=== PATIENT | male | born 1970 | race Caucasian/White ===

== ENCOUNTER → 2019-04-20 | Outpatient (REF) | payer OTHER ==
[2019-04-20 12:34] LABS: HEMATOCRIT 48.1 % (42.0-52.0); MEAN CORPUSCULAR HEMOGLOBIN 29.3 pg (27.0-33.0); MEAN CORPUSCULAR HGB CONC 33.3 g/dl (32.0-36.5); MEAN CORPUSCULAR VOLUME 88.1 fl (80.0-96.0); PLATELET COUNT, AUTOMATED 244 10^3/uL (150-450); RED BLOOD COUNT 5.46 10^6/uL (4.30-6.10); WHITE BLOOD COUNT 5.8 10^3/uL (4.0-10.0)
[2019-04-20 12:41] LABS: ALT/SGPT 33 U/L (12-78); BILIRUBIN,TOTAL 0.8 MG/DL (0.2-1.0); BLOOD UREA NITROGEN 12 MG/DL (7-18); CALCIUM LEVEL 9.4 MG/DL (8.5-10.1); CARBON DIOXIDE LEVEL 30 MEQ/L (21-32); CHLORIDE LEVEL 104 MEQ/L (98-107); CHOLESTEROL LEVEL 264 MG/DL (<200); CREATININE FOR GFR 1.15 MG/DL (0.70-1.30); GLOMERULAR FILTRATION RATE > 60.0 (>60); GLUCOSE, FASTING 94 MG/DL (70-100); POTASSIUM SERUM 4.7 MEQ/L (3.5-5.1); SODIUM LEVEL 140 MEQ/L (136-145); TRIGLYCERIDES LEVEL 222 MG/DL (<150)
[2019-04-20 12:42] LABS: ALBUMIN 4.2 GM/DL (3.2-5.2); CHOLESTEROL RISK RATIO 4.714 (<5); HDL CHOLESTEROL 56 MG/DL (>40); LDL CHOLESTEROL 164 MG/DL (<100); NON-HDL-C 208 MG/DL; TOTAL PROTEIN 7.3 GM/DL (6.4-8.2)
== END ==
LOC: M LABDRAW1 07:46
PROVIDERS: ATTEND Family Medicine
DX: Z00.00 Encounter for general adult medical examination without abnormal findings (principal)

== ENCOUNTER → 2019-06-05 | Outpatient (CLI) | payer OTHER ==
--- NOTE | 2019-06-07 11:21 | SLEEPCENT ---
DATE OF PROCEDURE: 06/05/2019 ORDERED BY: RENA Chin Nocturnal polysomnography was performed for the titration of pressure therapy in this patient with a clinical history of obstructive sleep apnea syndrome confirmed by home testing revealing a respiratory event index of 46. For testing the patient was fit with a ResMed Quattro full face mask of large size; 4 cm of water pressure were applied to the circuit and the lights were extinguished. 8 hours and 3 minutes of data were reviewed. There were 397 minutes of sleep identified. Sleep latency was short at 7.5 minutes. Rapid eye movement (REM) latency was prolonged at 180 minutes. Sleep architecture was fair with 3 REM cycles noted. Overall sleep efficiency 83.2%. The patient's electrocardiogram showed a sinus rhythm with an average heart rate of 65 beats per minute. Electroencephalogram (EEG) showed some alpha intrusion into non-REM stages. No focal events were identified. Respiratory events were fully palliated with CPAP at a pressure of 9. There was some activity noted in the limb leads but no trains events. Limb movement arousal index 5.3. IMPRESSION: Obstructive sleep apnea syndrome (G47.33). RECOMMENDATIONS: Nightly use of pressure therapy 9 cm of water.
== END ==
LOC: M SLEEP 20:00
PROVIDERS: ATTEND Nurse Practitioner Family
DX: G47.33 Obstructive sleep apnea (adult) (pediatric) (principal)

== ENCOUNTER → 2020-07-31 | Outpatient (CLI) | payer OTHER ==
--- NOTE | 2020-08-09 14:42 | ECGEPIP ---
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
== END ==
LOC: M EKG 06:32
PROVIDERS: ATTEND Anesthesiology
DX: Z01.818 Encounter for other preprocedural examination (principal); G47.9 Sleep disorder, unspecified

== ENCOUNTER → 2020-08-04 | Outpatient (CLI) | payer OTHER | LOC: M LABSMTC 09:10 | PROVIDERS: ATTEND Anesthesiology | DX: Z01.812 Encounter for preprocedural laboratory examination (principal); Z20.828 Contact with and (suspected) exposure to other viral communicable diseases ==

== ENCOUNTER 2020-08-09 09:27 | Day surgery (SDC) | payer OTHER ==
[~2020-08-09] VITALS: Ht 177.8 cm; Wt 87.1 kg
[~2020-08-09 09:27] MED LIST: LIDOCAINE 1% MDV 20ML VIAL SQ PRN; LR 1,000 ML IV ONE; ceFAZolin SOD 2 GM in IV 1 EA IV ONE
[2020-08-09] MEDS ORDERED: ROPIvacaine 0.5% 30ML INJECTION (J2795 PER 1MG) ONE ×2 (09:28)
[2020-08-09] MEDS ORDERED: LIDOCAINE 1% MDV 20ML VIAL ONE ×2 (09:28)
[2020-08-09] MEDS ORDERED: dexameTHASONE 10MG/1ML VIAL PRES.FREE (J1100 PER 1MG) ONE ×2 (09:28)
[2020-08-09] MEDS ORDERED: ceFAZolin 2 GM/D5W 50 ML IV BAG (J0690 PER 500MG) As Ordered ONE (10:13)
[2020-08-09] MEDS ORDERED: ceFAZolin SOD 2 GM in IV 1 EA IV ONE (10:15)
[2020-08-09] MEDS ORDERED: fentaNYL 100 MCG/2 ML INJECTION (J3010) As Ordered ONE (11:49)
[2020-08-09] MEDS ORDERED: MIDAZOLAM INJ 2MG/2ML VIAL (J2250 PER 1MG) As Ordered ONE ×2 (11:49→11:59)
[2020-08-09] MEDS ORDERED: ROCURONIUM BROMIDE 50 MG/5 ML VIAL As Ordered ONE (11:59)
[2020-08-09] MEDS ORDERED: propofoL 200 MG/20 ML VIAL As Ordered ONE (11:59)
[2020-08-09] MEDS ORDERED: fentaNYL 250 MCG/5 ML INJECTION (J3010) As Ordered ONE (11:59)
[2020-08-09] MEDS ORDERED: LIDOCAINE 2% 100MG/5ML SDV (FOR ANES.) As Ordered ONE (11:59)
[2020-08-09] MEDS: fentaNYL 100 MCG/2 ML INJECTION (J3010) IV SCH ×2 (12:16→12:17)
[2020-08-09] MEDS: MIDAZOLAM INJ 2MG/2ML VIAL (J2250 PER 1MG) IV SCH ×2 (12:16→12:17)
[2020-08-09] MEDS ORDERED: dexameTHASONE 4 MG/ML 1ML VIAL (J1100 PER 1MG) As Ordered ONE (15:17)
[2020-08-09] MEDS ORDERED: KETOROLAC 60MG 2ML VIAL As Ordered ONE (15:17)
[2020-08-09] MEDS ORDERED: ONDANSETRON 4MG/2ML VIAL As Ordered ONE (15:17)
[2020-08-09] MEDS ORDERED: SUGAMMADEX SODIUM 500 MG/5 ML VIAL (BRIDION) As Ordered ONE (15:48)
[2020-08-09] MEDS ORDERED: MEPERIDINE INJ 25 MG/ML VIAL (J2175) IV PRN (17:00)
[2020-08-09] MEDS ORDERED: ONDANSETRON 4MG/2ML VIAL IV PRN (17:00)
[2020-08-09] MEDS ORDERED: LR 1,000 ML IV SCH ×2 (17:00)
[2020-08-09] MEDS ORDERED: oxyCODONE 5MG TAB PO PRN (17:00)
[2020-08-09] MEDS ORDERED: METOCLOPRAMIDE INJ 10MG/2ML VIAL (J2765 PER 1) IV PRN (17:00)
[2020-08-09] MEDS ORDERED: fentaNYL 100 MCG/2 ML INJECTION (J3010) IV PRN (17:00)
[2020-08-09 17:25] VITALS: BP 143/90
--- NOTE | 2020-08-27 08:57 | RO ---
DATE OF OPERATION: 08/09/20 PREOPERATIVE DIAGNOSIS: Left ankle instability. POSTOPERATIVE DIAGNOSIS: Left ankle instability. PROCEDURE: Left Brostrom-Patel procedure. SURGEON: Myrtle Hanna MD ASSIST: DAVID Gonzalez EBL: 25 mL. COMPLICATIONS: None. CONDITION: Stable to recovery. ANESTHESIA: General endotracheal with popliteal nerve block. 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 He has failed conservative measures. Risks and benefits of surgery were discussed with him in detail including but not limited to infection, damage to nerves and blood vessels, continued pain and stiffness, need for additional procedures. Informed consent was obtained. PROCEDURE: The patient was met in the preoperative holding area where his left lower extremity was marked as correct operative side. He was taken to the operating room and placed in the supine position on the operating room table. Bony prominences were well padded. A well padded tourniquet was placed on the left upper thigh. He received antibiotics within 60 minutes prior to incision. Left lower extremity was prepped and draped in normal sterile fashion. An official time out was called where the correct patient, operative side and operative procedure were verified. An incision was made over the anterior aspect of the fibula. Careful dissection was performed to avoid branches of the superficial peroneal nerve. Once adequate dissection was obtained a cuff of tissue containing the capsule and lateral ligament was taken off the anterior and inferior aspect of the fibula. Further capsule was removed from the bone itself. The joint was irrigated as there was a small joint effusion. Two suture anchors were placed which were 3.5 Arthrex SutureTaks. One was placed in the footprint of the CFL and the second in the footprint of the ATFL. The #2 FiberWires were brought through the tissue. These were double-loaded anchors. With the foot held in slight eversion and posterior translation the sutures were tied down. There was a nice cuff of tissues following the repair. This was further reinforced including the extensor retinaculum and Patel modification using #0 Vicryl. Following repair the ankle was stable to anterior drawer, talar tilt testing. Copious irrigation was performed. Soft tissues were closed using 3-0 Vicryl and skin was closed using 3-0 nylon. The patient was placed into well padded splint. He was extubated and brought to the recovery room in stable condition. DAVID Gonzalez was present for the entire case and was essential for soft tissue retraction, hardware placement and overall decrease in tourniquet time. PLAN: The patient will be nonweightbearing on the left lower extremity for 6 weeks. I will see him back in 2 weeks for cast placement and suture removal. He will be on Aspirin for DVT prophylaxis. TOOTIE
== END 2020-08-09 17:50 | disposition home or self-care (01) ==
LOC: M SDC 09:27
PROVIDERS: ATTEND Orthopaedic Surgery
DX: M25.372 Other instability, left ankle (principal); G43.909 Migraine, unspecified, not intractable, without status migrainosus; G47.33 Obstructive sleep apnea (adult) (pediatric)
CPT/HCPCS: 27698; 64445; A6024; C1713; J0690; J1100; J1885; J2250; J2405; J2795; J3010

== ENCOUNTER → 2022-06-25 | Outpatient (CLI) | payer OTHER ==
[2022-06-25 14:12] LABS: BASO % 0.7 % (0.0-1.0); EOS # 0.2 10^3/uL (0.0-0.5); EOS % 2.6 % (0.0-3.0); HEMATOCRIT 50.3 % (42.0-52.0); HEMOGLOBIN 16.6 g/dl (13.5-17.5); LYMPH # 1.4 10^3/uL (1.5-5.0); LYMPH % 22.4 % (24.0-44.0); MONO # 0.6 10^3/uL (0.0-0.8); MONO % 9.3 % (2.0-8.0); NEUTROPHILS # 3.9 10^3/uL (1.5-8.5); NEUTROPHILS % 64.5 % (36.0-66.0); PLATELET COUNT, AUTOMATED 246 10^3/uL (150-450); RED BLOOD COUNT 5.35 10^6/uL (4.30-6.10); WHITE BLOOD COUNT 6.1 10^3/uL (4.0-10.0)
[2022-06-25 14:41] LABS: ERYTHROCYTE SEDIMENTATION RATE 2 mm/hr (0-20)
[2022-06-25 16:03] LABS: C REACTIVE PROTEIN QUANTITATIV < 0.30 MG/DL (0.00-0.30); RHEUMATOID FACTOR QUANT < 10.0 IU/ML (<15.0); URIC ACID 5.9 MG/DL (3.5-7.2)
[2022-06-27 13:07] LABS: ANTINUCLEAR ANTIBODIES DIRECT Negative (Negative)
== END ==
LOC: M PLALAB 12:10
PROVIDERS: ATTEND Physician Assistant Surgical
DX: S83.231D Complex tear of medial meniscus, current injury, right knee, subsequent encounter (principal)